=== PATIENT | female | born 1950 | race Caucasian/White ===

== ENCOUNTER 2023-09-02 13:44 | Inpatient (IN) | payer MEDICARE, OTHER ==
[~2023-09-02] VITALS: Ht 152.4 cm; Wt 61.2 kg
[2023-09-02] MEDS ORDERED: CLINDAMYCIN 600 MG PIGGYBACK**ER OMNI IV ONE (14:18)
[2023-09-02] MEDS ORDERED: CEFEPIME HCL 1 G VIAL ONE (14:18)
[2023-09-02] MEDS ORDERED: GABA300C PO (14:27)
[2023-09-02] MEDS ORDERED: ALPR0.5T8 PO (14:27)
[2023-09-02] MEDS ORDERED: ALLO100T56 PO (14:27)
[2023-09-02] MEDS ORDERED: LIDO30AD10 TP (14:27)
[2023-09-02] MEDS ORDERED: PRAV40TA3 PO (14:27)
[2023-09-02] MEDS ORDERED: FURO20TA4 PO (14:27)
[2023-09-02] MEDS ORDERED: ZIPR80CA2 PO (14:27)
[2023-09-02] MEDS ORDERED: SPIR25TA6 PO (14:27)
[2023-09-02] MEDS ORDERED: BACL10TA PO (14:27)
[2023-09-02] MEDS ORDERED: ACYC-108 PO (14:27)
[2023-09-02] MEDS ORDERED: BUPR-53 PO (14:27)
[2023-09-02] MEDS ORDERED: TRIA60LO14 TP (14:27)
[2023-09-02] MEDS ORDERED: OXYB10TA4 PO (14:27)
[2023-09-02] MEDS ORDERED: ONDA4TAB5 PO (14:27)
[2023-09-02] MEDS ORDERED: HYDR-3980 PO (14:27)
[2023-09-02] MEDS: IV NORMAL SALINE 1000 ML BAG IV ONE (16:20)
[2023-09-02] MEDS: CEFEPIME HCL 1 G in IV DEXTROSE 5% 50 ML IV ONE (16:20)
[2023-09-02 16:51] LABS: HEMOGLOBIN 15.4 g/dL (10.9-14.3)
[2023-09-02 16:53] LABS: BASOPHILS # (AUTO) 0.1 K/UL (0.0-0.2); BASOPHILS % (AUTO) 0.6 % (0.0-2.0); EOSINOPHILS % (AUTO) 0.2 % (0.0-7.0); HEMATOCRIT 47.4 % (31.2-41.9); LYMPHOCYTES # (AUTO) 2.3 K/uL (0.8-4.8); LYMPHOCYTES % (AUTO) 11.6 % (20.5-51.5); MEAN CORPUSCULAR HEMOGLOBIN 31.7 uug (24.7-32.8); MEAN CORPUSCULAR HGB CONC 32 g/dL (32.3-35.6); MEAN CORPUSCULAR VOLUME 97.9 fL (75.5-95.3); MONOCYTES # (AUTO) 1.5 K/uL (0.1-1.30); MONOCYTES % (AUTO) 7.6 % (0.0-11.0); NEUTROPHILS # (AUTO) 16.1 K/uL (1.8-8.9); PLATELET COUNT (AUTO) 55 K/uL (179-408); RED BLOOD CELL COUNT(AUTO) 4.84 MIL/uL (3.63-4.92); RED CELL DISTRIBUTION WIDTH 18.8 % (12.3-17.7); WHITE BLOOD COUNT (AUTO) 20.1 K/uL (3.8-11.8)
[2023-09-02] MEDS ORDERED: ONDANSETRON 4 MG/2 ML VIAL ONE (16:57)
[2023-09-02] MEDS ORDERED: HYDROMORPHONE 1 MG/1 ML DISP.SYRIN ONE (16:58)
[2023-09-02 17:01] LABS: CALCIUM 9.8 mg/dL (8.5-10.1); CARBON DIOXIDE 14 mmol/L (21-32); CHLORIDE 94 mmol/L (98-107); CREATININE 1.6 mg/dL (0.6-1.3); GLUCOSE 96 mg/dL (74-106); POTASSIUM 4.6 mmol/L (3.5-5.1); SODIUM SERUM 135 mmol/L (136-145); UREA NITROGEN, BLOOD 62 mg/dL (7-18)
[2023-09-02] MEDS: ONDANSETRON 4 MG/2 ML VIAL IV ONE (17:05)
[2023-09-02] MEDS: HYDROMORPHONE 1 MG/1 ML DISP.SYRIN IV ONE (17:05)
[2023-09-02 17:08] LABS: DIFFERENTIAL COMMENT 1
[2023-09-02] MEDS: CLINDAMYCIN PHOSPHATE IV 600 MG in IV DEXTROSE 5% 100 ML IV ONE (17:10)
[2023-09-02 17:13] LABS: ALANINE AMINOTRANSFERASE 440 U/L (14-59); ALKALINE PHOSPHATASE 611 U/L (50-136); ASPARTATE AMINOTRANSFERASE 1599 U/L (15-37); BILIRUBIN,DIRECT 4.2 mg/dL (0.0-0.2); BILIRUBIN,TOTAL 6.6 mg/dL (0.2-1.0); NT-PRO BNP 1561 pg/mL (0-125); TOTAL PROTEIN, SERUM 6.8 g/dL (6.4-8.2)
[2023-09-02 17:19] LABS: LACTIC ACID 9.4 mmol/L (0.4-2.0)
[2023-09-02] MEDS ORDERED: ONDANSETRON 4 MG/2 ML VIAL IV PRN (18:30)
[2023-09-02] MEDS ORDERED: PIPERACILLIN SODIUM/TAZOBACTAM 3.375 G in IV DEXTROSE 5% 50 ML IV SCH (18:30)
[2023-09-02 18:55] LABS: BAND % (MANUAL) 4 % (0-10); LYMPHOCYTES % (MANUAL) 10 % (20-40); MONOCYTES % (MANUAL) 8 % (2-10); NEUTROPHILS % (MANUAL) 78 % (42-75); PLATELET ESTIMATE DECREASED
[2023-09-02 18:57] LABS: ANISOCYTOSIS 1+
[2023-09-02 18:58] LABS: TEAR DROP CELLS 1+
[2023-09-02 21:06] LABS: *BILIRUBIN,URIN 1+ (NEGATIVE); *BLOOD, URINE 1+ (NEGATIVE); *COLOR,URINE YELLOW (YELLOW); *KETONES,URINE TRACE (NEGATIVE); *PROTEIN,URINE TRACE (NEGATIVE); LEUKOCYTE ESTERASE ,URINE 1+ (NEGATIVE); NITRITE, URINE POSITIVE (NEGATIVE); PH,URINE 5.5 (5.0-8.0); UGLUCOSE NEGATIVE (NEGATIVE)
[2023-09-02 21:11] LABS: *CLARITY,URINE SLIGHTLY CLOUDY (CLEAR)
[2023-09-02 21:25] LABS: BACTERIA,URINE MANY /HPF (NONE SEEN)
[2023-09-02 21:26] LABS: SQUAMOUS EPITHELIAL CELL,UR MODERATE /HPF (NONE SEEN)
[2023-09-02] MEDS ORDERED: MEROPENEM 500MG/NS 50ML PB ***ER PYXIS ONLY IV ONE (21:50)
[2023-09-02 22:00] VITALS: BP 140/88; TEMP 98.3; O2SAT 93
[2023-09-02] MEDS ORDERED: MEROPENEM 500 MG in IV NORMAL SALINE 50 ML IV SCH (22:00)
[2023-09-02] MEDS: MEROPENEM 500 MG in IV NORMAL SALINE 50 ML IV ONE (22:17)
[2023-09-02] MEDS: PANTOPRAZOLE SODIUM 40 MG VIAL IV SCH (22:18)
[2023-09-02 23:00] VITALS: BP 153/84; O2SAT 92
[2023-09-02] MEDS ORDERED: VANCOMYCIN IV 200 ML ONE (23:12)
[2023-09-02] MEDS ORDERED: HYDROMORPHONE 1 MG/1 ML DISP.SYRIN IV PRN (23:15)
[2023-09-02] MEDS: VANCOMYCIN IV 1,000 MG in IV DEXTROSE 5% 250 ML IV ONE (23:27)
[2023-09-03] VITALS (15 sets, daily range): BP systolic 99–142; BP diastolic 64–86; TEMP 98.1–100.7; O2SAT 88–98
[2023-09-03 00:01] LABS: ABG HCO3 17.6 mmol/L (22.0-26.0); ABG PCO2 22.5 mmHg (35.0-48.0); ABG PO2 74.4 mmHg (75.0-100.0); ABG SITE RIGHT RADIAL; ABG TOTAL HEMOGLOBIN 16.2 G/dL (12.0-16.0); AaDO2 96.4 mmHg; COHb 0.9 % (0.0-3.9); MetHb 0.4 % (0.0-1.5); O2Hb 94.1 % (94.0-97.0)
[2023-09-03 04:40] LABS: BASOPHILS # (AUTO) 0.2 K/UL (0.0-0.2); EOSINOPHILS % (AUTO) 0.2 % (0.0-7.0); HEMATOCRIT 44.2 % (31.2-41.9)
[2023-09-03 04:41] LABS: BASOPHILS % (AUTO) 0.8 % (0.0-2.0); HEMOGLOBIN 14.4 g/dL (10.9-14.3); LYMPHOCYTES # (AUTO) 2.3 K/uL (0.8-4.8); LYMPHOCYTES % (AUTO) 10.8 % (20.5-51.5); MEAN CORPUSCULAR HEMOGLOBIN 32.6 uug (24.7-32.8); MEAN CORPUSCULAR HGB CONC 33 g/dL (32.3-35.6); MEAN CORPUSCULAR VOLUME 100.3 fL (75.5-95.3); MONOCYTES # (AUTO) 1.5 K/uL (0.1-1.30); MONOCYTES % (AUTO) 6.9 % (0.0-11.0); NEUTROPHILS # (AUTO) 17.3 K/uL (1.8-8.9); NEUTROPHILS % (AUTO) 81.3 % (38.5-71.5); PLATELET COUNT (AUTO) 50 K/uL (179-408); RED CELL DISTRIBUTION WIDTH 19.3 % (12.3-17.7); WHITE BLOOD COUNT (AUTO) 21.3 K/uL (3.8-11.8)
[2023-09-03 04:43] LABS: DIFFERENTIAL COMMENT 1
[2023-09-03 05:26] LABS: ALBUMIN 2.8 g/dL (3.4-5.0); BILIRUBIN,DIRECT 4.4 mg/dL (0.0-0.2); CALCIUM 9.2 mg/dL (8.5-10.1); CREATININE 1.9 mg/dL (0.6-1.3); MAGNESIUM 2.8 mg/dL (1.8-2.4); PHOSPHOROUS 6.1 mg/dL (2.5-4.9)
[2023-09-03 05:29] LABS: POTASSIUM 6.2 mmol/L (3.5-5.1)
[2023-09-03 05:56] LABS: BAND % (MANUAL) 3 % (0-10); EOSINOPHILS % (MANUAL) 1 % (0-8); LYMPHOCYTES % (MANUAL) 11 % (20-40); METAMYELOCYTES % 2 % (0-1); MONOCYTES % (MANUAL) 5 % (2-10); MYELOCYTES % 1 % (0-0); NEUTROPHILS % (MANUAL) 77 % (42-75)
[2023-09-03 05:57] LABS: ANISOCYTOSIS 2+; PLATELET ESTIMATE MARKED DECREASED
[2023-09-03] MEDS ORDERED: ACET325T53 PO (07:22)
[2023-09-03] MEDS ORDERED: BISA10SU61 RC (07:24)
[2023-09-03] MEDS ORDERED: NA P133E RC (07:25)
[2023-09-03] MEDS ORDERED: MAGN400O6 PO (07:26)
[2023-09-03] MEDS ORDERED: MELA1TAB53 PO (07:26)
[2023-09-03] MEDS ORDERED: MULT-366 PO (07:28)
[2023-09-03] MEDS ORDERED: NYST15PO4 TP (07:29)
[2023-09-03] MEDS ORDERED: SENN-18 PO (07:32)
[2023-09-03] MEDS ORDERED: POLY17PO4 PO (07:32)
[2023-09-03] MEDS ORDERED: OXYC5CAP18 PO ×2 (07:32)
[2023-09-03] MEDS ORDERED: TRIA1TAB98 PO (07:33)
[2023-09-03] MEDS ORDERED: CALC300T4 PO (07:35)
[2023-09-03] MEDS ORDERED: TRIA15CR2 TP (07:35)
[2023-09-03] MEDS: MEROPENEM 500 MG in IV NORMAL SALINE 50 ML IV SCH (08:53)
[2023-09-03] MEDS: IV NS 1000 ML 1,000 ML IV PRN (08:54)
[2023-09-03] MEDS: MULTIVIT, IRON, MIN NO. 8, FA TABLET PO SCH (10:25)
[2023-09-03] MEDS: ALLOPURINOL 100 MG TABLET PO SCH (10:30)
[2023-09-03] MEDS ORDERED: BISACODYL 10 MG SUPP.RECT RC PRN (10:30)
[2023-09-03] MEDS ORDERED: MULTIVITAMINS 5 ML LIQUID UDC NG SCH (10:30)
[2023-09-03] MEDS: OXYCODONE HCL 5 MG TABLET PO SCH (10:42)
[2023-09-03] MEDS: CALCIUM CHLORIDE 1 GM in IV NORMAL SALINE 100 ML IV ONE (11:04)
[2023-09-03] MEDS: SODIUM BICARBONATE 8.4% 50 MEQ/50 ML DISP.SYRIN IV ONE (11:04)
[2023-09-03] MEDS: HYDROMORPHONE 1 MG/1 ML DISP.SYRIN IV PRN (12:55)
[2023-09-03] MEDS ORDERED: GABAPENTIN 300 MG CAPSULE PO SCH (13:00)
[2023-09-03] MEDS: GABAPENTIN 100 MG CAPSULE PO SCH (13:00)
[2023-09-03 15:09] LABS: CALCIUM 10.3 mg/dL (8.5-10.1); CREATININE 2.4 mg/dL (0.6-1.3)
[2023-09-03] MEDS: ENOXAPARIN SODIUM 30 MG/0.3 ML DISP.SYRIN SUBCUT SCH (15:19)
[2023-09-04] VITALS (20 sets, daily range): BP systolic 96–128; BP diastolic 58–75; TEMP 98–99.3; O2SAT 89–97
[2023-09-04 04:20] LABS: MEAN CORPUSCULAR HGB CONC 32 g/dL (32.3-35.6)
[2023-09-04 04:25] LABS: BASOPHILS # (AUTO) 0.3 K/UL (0.0-0.2); BASOPHILS % (AUTO) 1.2 % (0.0-2.0); DIFFERENTIAL COMMENT 0; EOSINOPHILS % (AUTO) 0.2 % (0.0-7.0); HEMATOCRIT 40.2 % (31.2-41.9); LYMPHOCYTES # (AUTO) 2.6 K/uL (0.8-4.8); LYMPHOCYTES % (AUTO) 11.9 % (20.5-51.5); MONOCYTES # (AUTO) 1.5 K/uL (0.1-1.30); MONOCYTES % (AUTO) 6.8 % (0.0-11.0); NEUTROPHILS # (AUTO) 17.8 K/uL (1.8-8.9); NEUTROPHILS % (AUTO) 79.9 % (38.5-71.5); PLATELET COUNT (AUTO) 83 K/uL (179-408); RED BLOOD CELL COUNT(AUTO) 4.06 MIL/uL (3.63-4.92); RED CELL DISTRIBUTION WIDTH 19.5 % (12.3-17.7); WHITE BLOOD COUNT (AUTO) 22.3 K/uL (3.8-11.8)
[2023-09-04] MEDS: VANCOMYCIN IV 1,000 MG in IV DEXTROSE 5% 250 ML IV ONE (04:26)
[2023-09-04 04:35] LABS: CALCIUM 9.2 mg/dL (8.5-10.1); CREATININE 2.4 mg/dL (0.6-1.3); MAGNESIUM 2.7 mg/dL (1.8-2.4); PHOSPHOROUS 6.6 mg/dL (2.5-4.9)
[2023-09-04 04:43] LABS: POTASSIUM 7.3 mmol/L (3.5-5.1)
[2023-09-04] MEDS: SODIUM POLYSTYRENE SULFONATE 15 G/60 ML LIQUID UDC PO ONE (06:19)
[2023-09-04] MEDS: CALCIUM CHLORIDE 1 GM in IV NORMAL SALINE 100 ML IV ONE (08:26)
[2023-09-04] MEDS: SODIUM BICARBONATE 8.4% 50 MEQ/50 ML DISP.SYRIN IV ONE (08:26)
[2023-09-04] MEDS ORDERED: buPROPion XL 150 MG TAB.SR.24H PO SCH (09:00)
[2023-09-04] MEDS: NEPRO 1000 ML GT SCH (09:01)
[2023-09-04 10:48] LABS: CALCIUM 10.7 mg/dL (8.5-10.1); CREATININE 2.6 mg/dL (0.6-1.3)
[2023-09-04] MEDS: LIDOCAINE 5% PATCH TD SCH (11:56)
[2023-09-04 12:16] LABS: LYMPHOCYTES % (MANUAL) 12 % (20-40); NEUTROPHILS % (MANUAL) 75 % (42-75)
[2023-09-04 12:17] LABS: METAMYELOCYTES % 3 % (0-1)
[2023-09-04 12:18] LABS: BAND % (MANUAL) 5 % (0-10); MONOCYTES % (MANUAL) 5 % (2-10)
[2023-09-04 12:20] LABS: ANISOCYTOSIS 2+
[2023-09-04 12:32] LABS: PLATELET ESTIMATE SLIGHT INCREASED
[2023-09-04] MEDS: MORPHINE SULFATE 2 MG/1 ML DISP.SYRIN IV ONE (18:33)
[2023-09-04] MEDS: ACETAMINOPHEN 325 MG TABLET PO PRN (23:51)
[2023-09-05] VITALS (32 sets, daily range): BP systolic 33–114; BP diastolic 12–69; TEMP 97.8–100.8; O2SAT 85–95
[2023-09-05] MEDS ORDERED: SODIUM BICARBONATE 8.4% 50 MEQ/50 ML DISP.SYRIN IV ONE (00:10)
[2023-09-05] MEDS: SODIUM BICARBONATE 8.4% 100 MEQ in IV D5 1/2 NS 1000 ML 1,000 ML IV PRN (00:14)
[2023-09-05 05:17] LABS: HEMATOCRIT 36.4 % (31.2-41.9); HEMOGLOBIN 11.8 g/dL (10.9-14.3); LYMPHOCYTES # (AUTO) 1.6 K/uL (0.8-4.8); MEAN CORPUSCULAR HGB CONC 33 g/dL (32.3-35.6); NEUTROPHILS # (AUTO) 15.8 K/uL (1.8-8.9)
[2023-09-05 05:18] LABS: BASOPHILS # (AUTO) 0.2 K/UL (0.0-0.2); BASOPHILS % (AUTO) 0.9 % (0.0-2.0); EOSINOPHILS % (AUTO) 0.2 % (0.0-7.0); LYMPHOCYTES % (AUTO) 8.4 % (20.5-51.5); MEAN CORPUSCULAR HEMOGLOBIN 32.5 uug (24.7-32.8); MEAN CORPUSCULAR VOLUME 99.8 fL (75.5-95.3); MONOCYTES # (AUTO) 1.6 K/uL (0.1-1.30); MONOCYTES % (AUTO) 8.4 % (0.0-11.0); NEUTROPHILS % (AUTO) 82.1 % (38.5-71.5); RED BLOOD CELL COUNT(AUTO) 3.65 MIL/uL (3.63-4.92); RED CELL DISTRIBUTION WIDTH 21.5 % (12.3-17.7); WHITE BLOOD COUNT (AUTO) 19.2 K/uL (3.8-11.8)
[2023-09-05 05:30] LABS: CALCIUM 9.3 mg/dL (8.5-10.1); CREATININE 2.7 mg/dL (0.6-1.3); MAGNESIUM 2.9 mg/dL (1.8-2.4)
[2023-09-05 06:07] LABS: DIFFERENTIAL COMMENT 1; PLATELET COUNT (AUTO) 28 K/uL (179-408)
[2023-09-05 06:24] LABS: BAND % (MANUAL) 2 % (0-10); LYMPHOCYTES % (MANUAL) 10 % (20-40); MONOCYTES % (MANUAL) 8 % (2-10); NEUTROPHILS % (MANUAL) 80 % (42-75)
[2023-09-05 06:25] LABS: ANISOCYTOSIS 2+; PLATELET ESTIMATE DECREASED
[2023-09-05] MEDS: MULTIVIT, IRON, MIN NO. 8, FA TABLET GT SCH (08:52)
[2023-09-05] MEDS ORDERED: ENOXAPARIN SODIUM 30 MG/0.3 ML DISP.SYRIN SUBCUT SCH (09:00)
[2023-09-05] MEDS: PHENYLEPHRINE IV 100 MG in IV NORMAL SALINE 240 ML IV PRN (09:56)
[2023-09-05] MEDS: LORAZEPAM 2 MG/1 ML VIAL IV PRN (13:49)
[2023-09-05] MEDS: MORPHINE SULFATE PF IV DRIP 100 MG in IV DEXTROSE 5% 96 ML IV PRN (13:57)
[2023-09-05] MEDS ORDERED: OXYCODONE HCL 5 MG TABLET GT SCH (14:00)
[2023-09-06 14:07] LABS: CALCITRIOL VIT D,1,25 DIHYDROX 34.6 pg/mL (24.8-81.5)
== END 2023-09-05 21:17 | DRG 871 ==
LOC: ER 13:44 → CCU 20:19
PROVIDERS: ADMIT Nurse Practitioner Acute Care; ATTEND Nurse Practitioner Acute Care
PROC: 05HC33Z Insertion of Infusion Device into Left Basilic Vein, Percutaneous Approach (ICD-10-PCS; principal; 2023-09-02)
DX: A41.9 Sepsis, unspecified organism (principal); G92.9 Unspecified toxic encephalopathy; I21.A1 Myocardial infarction type 2; N17.0 Acute kidney failure with tubular necrosis; J96.01 Acute respiratory failure with hypoxia; N39.0 Urinary tract infection, site not specified; E87.3 Alkalosis; I50.30 Unspecified diastolic (congestive) heart failure; C78.7 Secondary malignant neoplasm of liver and intrahepatic bile duct; E44.1 Mild protein-calorie malnutrition; Z51.5 Encounter for palliative care; Z66 Do not resuscitate; C50.812 Malignant neoplasm of overlapping sites of left female breast; R65.20 Severe sepsis without septic shock; S42.212D Unspecified displaced fracture of surgical neck of left humerus, subsequent encounter for fracture with routine healing; S42.012D Anterior displaced fracture of sternal end of left clavicle, subsequent encounter for fracture with routine healing; X58.XXXD Exposure to other specified factors, subsequent encounter; E83.52 Hypercalcemia; E78.5 Hyperlipidemia, unspecified; E86.0 Dehydration; E87.5 Hyperkalemia; E88.09 Other disorders of plasma-protein metabolism, not elsewhere classified; F25.9 Schizoaffective disorder, unspecified; K74.60 Unspecified cirrhosis of liver; N18.30 Chronic kidney disease, stage 3 unspecified; Z86.73 Personal history of transient ischemic attack (TIA), and cerebral infarction without residual deficits; Z87.440 Personal history of urinary (tract) infections; Z79.899 Other long term (current) drug therapy; R59.0 Localized enlarged lymph nodes; M48.55XD Collapsed vertebra, not elsewhere classified, thoracolumbar region, subsequent encounter for fracture with routine healing; Z87.81 Personal history of (healed) traumatic fracture; Z68.26 Body mass index [BMI] 26.0-26.9, adult; B00.9 Herpesviral infection, unspecified; D69.6 Thrombocytopenia, unspecified; Z74.09 Other reduced mobility
CPT/HCPCS: 36415; 36600; 70030-TC; 71045; 71250; 74018; 82652; 83605; 83735; 83970; 84100; 84484; 85025; 85730; 87040; 93005; 93307; A4606; A4663; C9113; G0378; J0692; J1170; J1650; J2060; J2185; J2270; J2274; J2405; J3370; J3490; J7040; J7050; J8499